=== PATIENT | male | born 1995 | race African-American/Black ===

== ENCOUNTER 2024-02-07 21:56 | Emergency (ER) | payer SELFPAY ==
[~2024-02-07] VITALS: Ht 187.9 cm; Wt 72.6 kg
[2024-02-07] MEDS ORDERED: METHOCARBAMOL 500 MG TAB PO ONE (23:15)
[2024-02-07] MEDS ORDERED: Ketorolac Tromethamine 60 MG/2 ML VIAL IM ONE (23:15)
[2024-02-07] MEDS ORDERED: NAPROXEN250 MG PO (23:17)
[2024-02-07] MEDS ORDERED: METHOCARBAMOL500 M1 PO (23:17)
== END 2024-02-07 23:38 | disposition home or self-care (01) ==
LOC: ED 21:56
DX: S39.012A Strain of muscle, fascia and tendon of lower back, initial encounter (principal); X50.0XXA Overexertion from strenuous movement or load, initial encounter; Y93.89 Activity, other specified; Y92.89 Other specified places as the place of occurrence of the external cause; Y99.0 Civilian activity done for income or pay

== ENCOUNTER 2024-12-13 08:52 | Emergency (ER) | payer OTHER ==
[~2024-12-13] VITALS: Wt 78.0 kg
[~2024-12-13 08:52] MED LIST: METHOCARBAMOL500 M1 PO; NAPROXEN250 MG PO
[2024-12-13] MEDS ORDERED: AMOX-CLAV 875-1 EACH PO (09:11)
[2024-12-13] MEDS ORDERED: Lidocaine Hydrochloride 2 GM/50 ML BOT T ONE (09:15)
== END 2024-12-13 09:17 | disposition home or self-care (01) ==
LOC: ED 08:52
DX: L05.91 Pilonidal cyst without abscess (principal)